=== PATIENT | male | born 1940 | race Caucasian/White ===

== ENCOUNTER → 2024-09-10 | Outpatient (CLI) | payer MEDICARE ==
--- NOTE | 2024-09-10 14:31 | MR ---
EXAMINATION TYPE: MR Prostate wo/w con DATE OF EXAM: 09/10/2024 9:09 AM COMPARISON: None. CLINICAL INDICATION: Male, 83 years old with history of R97.20 ELEVATED PSA; Elevated PSA. TECHNIQUE: Multi-planar, multi-sequence imaging of the pelvis is performed prior to and following the uncomplicated administration of bolus intravenous gadolinium. CONTRAST: 10 [facility] Interpretive Criteria: PI-RADS v2.1 SERUM PSA: 24 = 11.8 7-4 = 6.38 SURGICAL PATHOLOGY: No data available. FINDINGS: Prostatic dimensions: 5.7 x 5.8 x 4.3 cm. Ellipsoid Volume:74.43 (PSA density=0.16 ng/mL/m CENTRAL GLAND (Central and Transition Zones/CZ+TZ): Multiple bilateral, heterogenous appearing hypertrophic stromal nodules, without suspicious lesion. M edian lobe hypertrophy with protrusion into the base of the bladder. (PI-RADS 2) PERIPHERAL ZONE (PZ): Low T2/low ADC/high DWI signal 7 mm lesion posterior right peripheral zone near the base/mid gland. ( PI-RADS 4) SEMINAL VESICLES (SV): History of low signal in the superior medial aspect of the right side no significant enhancement with in this region however. There otherwise Symmetric and unremarkable. PERIPROSTATIC TISSUES: Unremarkable. LYMPH NODES: No enlarged pelvic lymph node. REMAINING PELVIS: Bladder wall is within normal limits given distention. No abnormal free or organized intrapelvic fluid collection. No pathologic bowel dilation or mural thickening. Left fat containing inguinal hernia OSSEOUS STRUCTURES: No suspicious osseous abnormality. IMPRESSION: 1. PI-RADS 4 lesion right peripheral zone posteriorly near the base/mid gland measuring up to 7 mm. 2. Moderate BPH, estimated gland volume 74.43 mL. 3. No suspicious osseous lesion. No lymphadenopathy. No evidence of prostate adenocarcinoma involving the periprostatic tissues. [facility], Workstation: [id number], 09/10/2024 2:29 PM
== END | disposition home or self-care (01) ==
LOC: RADMRIMAIN 08:03
PROVIDERS: ATTEND Urology
DX: R97.20 Elevated prostate specific antigen [PSA]
CPT/HCPCS: 72197